=== PATIENT | male | born 1955 | race Caucasian/White ===

== ENCOUNTER → 2016-09-26 | Outpatient (CLI) | payer BC ==
[~2016-09-26] VITALS: Ht 182.9 cm; Wt 90.7 kg
[~2016-09-26] MED LIST: LIDOCAINE 2% INJ 100 MG/5 ML SDV (FOR ANES.) As Ordered ONE; NS 1,000 ML IV ONE; PROPOFOL 200 MG/20 ML VIAL As Ordered ONE
--- NOTE | 2016-09-26 11:45 | ROOR ---
Patient Name: Matthew James Procedure Date: 09/26/2016 11:20 AM Date of : 1955 Age: 60 Room: [facility] Gender: Male Note Status: Finalized Procedure: Total Colonoscopy to Cecum + Cold Snare Polypectomy Indications: Screening for colorectal malignant neoplasm, High risk colon cancer surveillance: Personal history of colonic polyps, Last colonoscopy: 2013 Providers: Narendra Carreon MD Referring MD: Narendra Carreon MD Requesting Provider: Medicines: Monitored Anesthesia Care Complications: No immediate complications. Procedure: Pre-Anesthesia Assessment: - The heart rate, respiratory rate, oxygen saturations, blood pressure, adequacy of pulmonary ventilation, and response to care were monitored throughout the procedure. The Colonoscope was introduced through the anus and advanced to the cecum, identified by appendiceal orifice and ileocecal valve. The colonoscopy was performed without difficulty. The patient tolerated the procedure well. The quality of the bowel preparation was excellent. Findings: The perianal and digital rectal examinations were normal. Non-bleeding internal hemorrhoids were found during retroflexion. The hemorrhoids were small and Grade I (internal hemorrhoids that do not prolapse). A small polyp was found at 20 cm proximal to the anus. The polyp was sessile. The polyp was removed with a cold snare. Resection and retrieval were complete. The exam was otherwise without abnormality on direct and retroflexion views. Impression: - Non-bleeding internal hemorrhoids. - One small polyp at 20 cm proximal to the anus, removed with a cold snare. Resected and retrieved. - The examination was otherwise normal on direct and retroflexion views. - The exam was otherwise normal to the cecum. Recommendation: - Patient has a contact number available for emergencies. The signs and symptoms of potential delayed complications were discussed with the patient. Return to normal activities tomorrow. Written discharge instructions were provided to the patient. - High fiber diet. - Discharge patient to home. - Continue present medications. - Await pathology results. - Telephone GI clinic for pathology results in 1 week. - Repeat colonoscopy in 5 years for surveillance based on pathology results. - Return to referring physician. - The findings and recommendations were discussed with the patient's family. Narendra Carreon MD Narendra Carreon MD 09/26/2016 11:44:49 AM This report has been signed electronically. Number of Addenda: 0 Note Initiated On: 09/26/2016 11:20 AM Estimated Blood Loss: Estimated blood loss: none.
[2016-09-26 12:05] VITALS: BP 113/72
== END | disposition home or self-care (01) ==
LOC: M OPP 09:51
PROVIDERS: ATTEND Internal Medicine Gastroenterology
DX: Z12.11 Encounter for screening for malignant neoplasm of colon (principal); D12.5 Benign neoplasm of sigmoid colon; K64.0 First degree hemorrhoids; Z86.010 Personal history of colon polyps; R05 Cough; F41.9 Anxiety disorder, unspecified; R01.1 Cardiac murmur, unspecified; Z88.3 Allergy status to other anti-infective agents

== ENCOUNTER → 2020-02-06 | Outpatient (CLI) | payer SELFPAY | LOC: M LABSMTC 12:15 | PROVIDERS: ATTEND Pediatrics | DX: Z20.828 Contact with and (suspected) exposure to other viral communicable diseases (principal) ==

== ENCOUNTER 2020-05-10 05:55 | Emergency (ER) | payer BC ==
[~2020-05-10] VITALS: Ht 182.9 cm; Wt 92.1 kg
[2020-05-10] MEDS ORDERED: ROSU5TAB5 PO (06:02)
[2020-05-10 07:39] LABS: BASO % 0.3 % (0.0-1.0); EOS # 0.1 10^3/uL (0.0-0.5); EOS % 1.2 % (0.0-3.0); HEMATOCRIT 40.4 % (42.0-52.0); HEMOGLOBIN 13.2 g/dl (13.5-17.5); LYMPH # 1.2 10^3/uL (1.5-5.0); LYMPH % 12.9 % (24.0-44.0); MEAN CORPUSCULAR HEMOGLOBIN 30.4 pg (27.0-33.0); MEAN CORPUSCULAR HGB CONC 32.7 g/dl (32.0-36.5); MEAN CORPUSCULAR VOLUME 93.1 fl (80.0-96.0); MONO # 0.7 10^3/uL (0.0-0.8); MONO % 7.2 % (2.0-8.0); NEUTROPHILS # 7.2 10^3/uL (1.5-8.5); NEUTROPHILS % 77.9 % (36.0-66.0); PLATELET COUNT, AUTOMATED 282 10^3/uL (150-450); RED BLOOD COUNT 4.34 10^6/uL (4.30-6.10); WHITE BLOOD COUNT 9.2 10^3/uL (4.0-10.0)
[2020-05-10 08:00] LABS: ALBUMIN 3.7 GM/DL (3.2-5.2); ALT/SGPT 36 U/L (12-78); AMYLASE 41 U/L (25-115); BILIRUBIN,DIRECT < 0.1 MG/DL (0.0-0.2); BILIRUBIN,TOTAL 0.5 MG/DL (0.2-1.0); BLOOD UREA NITROGEN 17 MG/DL (7-18); CALCIUM LEVEL 8.6 MG/DL (8.8-10.2); CARBON DIOXIDE LEVEL 27 MEQ/L (21-32); CHLORIDE LEVEL 111 MEQ/L (98-107); CK-MB VALUE MASS < 1.0 NG/ML (<3.6); CPK CREATINE PHOSPHOKINASE 107 U/L (39-308); CREATININE FOR GFR 0.92 MG/DL (0.70-1.30); GLOMERULAR FILTRATION RATE > 60.0 (>49); GLUCOSE, FASTING 98 MG/DL (70-100); LIPASE 88 U/L (73-393); MB/CK RELATIVE INDEX 0.93 (< OR =4); POTASSIUM SERUM 4.7 MEQ/L (3.5-5.1); SODIUM LEVEL 143 MEQ/L (136-145); TOTAL PROTEIN 7.1 GM/DL (6.4-8.2); TROPONIN I < 0.02 NG/ML (< 0.10)
--- NOTE | 2020-05-10 08:21 | REP ---
INDICATION: epigastric/RUQ abd pain wrapping around to back COMPARISON: None. TECHNIQUE: Real time hollingsworth scale ultrasound examination using curved array transducer. FINDINGS: Liver idemonstrates fatty changes and 9mm simple cyst in the left lobe. Pancreas is incompletely evaluated due to interposed bowel gas. The gallbladder demonstrates gallstone at the neck of the gallbladder without wall thickening, or pericholecystic fluid. No biliary ductal dilatation is appreciated and the common bile duct measures 3.6 mm diameter. Right kidney is normal in reniform shape without hydronephrosis and measures 11.4 x 5.5 x 4.9 cm. No ascites in the visualized right upper quadrant. IMPRESSION: 1. Cholelithiasis without sonographic signs of cholecystitis. 2. Hepatosteatosis and subcm cyst. <Electronically signed by Bobby Mcginnis > 05/10/20 [id number]
--- NOTE | 2020-05-10 08:22 | REP ---
INDICATION: Abdominal Pain COMPARISON: None. TECHNIQUE: Upright view of the chest with supine and upright views of the abdomen and pelvis. FINDINGS: Frontal upright view of the chest demonstrates no acute cardiopulmonary process or free air below the diaphragm to suspect pneumoperitoneum. Supine and upright views of the abdomen and pelvis demonstrate nonspecific bowel gas pattern without obstruction or perforation. No organomegaly. No abnormal calcifications. Skeletal structures normal for age. IMPRESSION: Nonspecific bowel gas pattern. <Electronically signed by Bobby Mcginnis > 05/10/20 [id number]
--- NOTE | 2020-05-10 08:42 | ED PDOC ---
Post-Departure Follow-Up radiology report faxed to Hawa Cormier MD May 10, 2020 08:42
--- NOTE | 2020-05-10 09:48 | ECGEPIP ---
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
[2020-05-10 11:33] LABS: CK-MB VALUE MASS < 1.0 NG/ML (<3.6); CPK CREATINE PHOSPHOKINASE 49 U/L (39-308); MB/CK RELATIVE INDEX 2.04 (< OR =4); TROPONIN I < 0.02 NG/ML (< 0.10)
[2020-05-10 12:01] VITALS: BP 128/85
--- NOTE | 2020-05-10 19:15 | ECGEPIP ---
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
== END 2020-05-10 12:09 | disposition home or self-care (01) ==
LOC: M ED 05:55
DX: K80.20 Calculus of gallbladder without cholecystitis without obstruction (principal); K76.0 Fatty (change of) liver, not elsewhere classified; K76.89 Other specified diseases of liver; R10.11 Right upper quadrant pain; E78.5 Hyperlipidemia, unspecified

== ENCOUNTER → 2020-09-12 | Outpatient (CLI) | payer BC ==
[~2020-09-12] MED LIST changes: -LIDOCAINE 2% INJ 100 MG/5 ML SDV (FOR ANES.) As Ordered ONE; -NS 1,000 ML IV ONE; -PROPOFOL 200 MG/20 ML VIAL As Ordered ONE; +ROSU5TAB5 PO
== END ==
LOC: M LABSMTC 09:03
PROVIDERS: ATTEND Anesthesiology
DX: Z20.828 Contact with and (suspected) exposure to other viral communicable diseases (principal); Z11.59 Encounter for screening for other viral diseases

== ENCOUNTER 2020-09-17 06:02 | Day surgery (SDC) | payer BC ==
[~2020-09-17] VITALS: Ht 182.9 cm; Wt 90.0 kg
[2020-09-17] MEDS ORDERED: BUPIVACAINE HCL 0.25% 30ML VIAL As Ordered ONE (07:13)
[2020-09-17] MEDS ORDERED: dexameTHASONE 4 MG/ML 1ML VIAL (J1100 PER 1MG) As Ordered ONE (07:14)
[2020-09-17] MEDS ORDERED: MIDAZOLAM INJ 2MG/2ML VIAL (J2250 PER 1MG) As Ordered ONE (07:14)
[2020-09-17] MEDS ORDERED: ACETAMINOPHEN 1000MG 100ML IV BTL (OFIRMEV) (J0131 PER 10MG) As Ordered ONE (07:14)
[2020-09-17] MEDS ORDERED: propofoL 200 MG/20 ML VIAL As Ordered ONE (07:14)
[2020-09-17] MEDS ORDERED: LIDOCAINE 2% 100MG/5ML SDV (FOR ANES.) As Ordered ONE (07:14)
[2020-09-17] MEDS ORDERED: ROCURONIUM BROMIDE 50 MG/5 ML VIAL As Ordered ONE (07:14)
[2020-09-17] MEDS ORDERED: KETOROLAC 60MG 2ML VIAL As Ordered ONE (07:14)
[2020-09-17] MEDS ORDERED: fentaNYL 100 MCG/2 ML INJECTION (J3010) As Ordered ONE ×2 (07:14→08:01)
[2020-09-17] MEDS ORDERED: ONDANSETRON 4MG/2ML VIAL As Ordered ONE (07:14)
[2020-09-17] MEDS ORDERED: SUGAMMADEX SODIUM 500 MG/5 ML VIAL (BRIDION) As Ordered ONE (07:14)
[2020-09-17] MEDS ORDERED: LIDOCAINE 5% OINT 30GM TUBE As Ordered ONE (07:22)
[2020-09-17] MEDS ORDERED: LR 1,000 ML IV ONE (07:25)
[2020-09-17] MEDS ORDERED: METOCLOPRAMIDE INJ 10MG/2ML VIAL (J2765 PER 1) IV PRN (09:30)
[2020-09-17] MEDS ORDERED: fentaNYL 100 MCG/2 ML INJECTION (J3010) IV PRN (09:30)
[2020-09-17] MEDS ORDERED: ONDANSETRON 4MG/2ML VIAL IV PRN (09:30)
[2020-09-17] MEDS ORDERED: PERCOCET 5MG/325MG TAB PO PRN (09:30)
[2020-09-17] MEDS ORDERED: HYDR-3715 PO (09:49)
[2020-09-17] MEDS ORDERED: NORCO, ANEXSIA 5/325MG TABLET (HYDROcodone/ACETAMINOPHEN) PO PRN (09:50)
[2020-09-17] MEDS ORDERED: ACETAMINOPHEN 500 MG TAB PO PRN (09:50)
[2020-09-17] MEDS ORDERED: IBUPROFEN 600MG TAB PO PRN (09:50)
[2020-09-17 11:00] VITALS: BP 136/82
--- NOTE | 2020-09-17 11:35 | RO ---
OPERATIVE NOTE DATE OF OPERATION: 09/17/2020 PREOPERATIVE DIAGNOSIS: Symptomatic gallstones. POSTOPERATIVE DIAGNOSIS: Symptomatic gallstones. PROCEDURE PERFORMED: Robotic-assisted laparoscopic cholecystectomy. SURGEON: Mamadou Enamorado MD REGIONAL DIRECTOR OF ADMISSIONS: ANESTHESIA: General. INDICATIONS FOR THE PROCEDURE: The patient is a 64-year-old man with a history of several episodes of upper abdominal pain consistent with biliary colic. He was found to have gallstones and is now for a laparoscopic cholecystectomy done with robotic assist. OPERATIVE PROCEDURE: The patient was brought to the operating room and placed on the table in a supine position. He was placed under general endotracheal anesthesia. The patient's abdomen was prepped and draped in a sterile fashion. 1/4% Marcaine was infiltrated at each of the trocar sites as needed. The sites for the four robotic ports were outlined on the abdomen. 1/4% Marcaine was infiltrated at each of these sites. The incision was in the left upper quadrant. A Veress needle was inserted and after positive hanging drop test, the abdomen was insufflated with carbon dioxide gas. An 8 mm robotic port was then placed through the incision without difficulty. A camera was inserted and initial examination showed no evidence of trocar or Veress needle injury. The liver appeared normal. The gallbladder was not initially visible. Portions of the stomach and intestines appeared normal. The other three trocars were then placed in the supraumbilical site and two in the right lower quadrant. The patient was then tilted to a 15 degree reverse Trendelenburg position and rolled slightly to the left. The patient cart of the da Yunior XI robot was brought into position and the endoscope arm was docked to the supraumbilical port. Targeting took place on the area of the gallbladder neck in the right upper quadrant. The other robotic arms were then docked. A hook cautery was placed in the left upper quadrant and a fenestrated bipolar and grasping retractor were placed on the right. I then moved to the control console to proceed with the operation. The gallbladder fundus was visible and this was grasped and elevated. The omentum and colon were retracted inferiorly to better expose the gallbladder. Dissection began at the gallbladder neck. The peritoneum was opened using the hook cautery and dissection then proceeded through the pericholecystic fibrofatty tissues. The cholecystic artery was identified branching at the top of the dissection. The cystic duct was then clearly identified and dissected free circumferentially. The cystic duct and the cholecystic artery were then doubly clipped and divided. The gallbladder was then dissected from the gallbladder bed using cautery dissection. The gallbladder was not perforated in the course of dissection. The gallbladder was placed in an Endopouch. The right upper quadrant was inspected. A cottonoid was used to absorb a minimal amount of blood in the subhepatic space. Inspection showed no evidence of bleeding or bile leak. The robotic instruments were then removed and the robot was undocked and withdrawn. I returned to the patient's bedside. The patient was returned to a flat position. The trocars were used to deflate the abdomen and were then removed. The Endopouch was recovered through the supraumbilical site. It was necessary to extend the fascial incision slightly to allow passage of the gallbladder. There were some small gallstones palpable within the gallbladder. The fascia at the supraumbilical site was closed with a running 2-0 PDS. The skin incisions were all closed with buried 4-0 Vicryl and Steri-Strips. Light dressings were applied. The patient tolerated the procedure well without apparent complication. He was awakened in the operating room, extubated and moved to the recovery room in stable condition.
== END 2020-09-17 11:02 | disposition home or self-care (01) ==
LOC: M SDC 06:02
PROVIDERS: ATTEND Surgery
DX: K80.10 Calculus of gallbladder with chronic cholecystitis without obstruction (principal); E78.5 Hyperlipidemia, unspecified; F41.9 Anxiety disorder, unspecified; Z79.899 Other long term (current) drug therapy
CPT/HCPCS: 47562; 88304; J0131; J1100; J1885; J2250; J2405; J3010; S2900

== ENCOUNTER → 2021-09-19 | Outpatient (CLI) | payer BC ==
[~2021-09-19] MED LIST changes: +HYDR-3715 PO
== END ==
LOC: M LABSMTC 09:26
PROVIDERS: ATTEND Anesthesiology
DX: Z01.812 Encounter for preprocedural laboratory examination (principal); Z20.822 Contact with and (suspected) exposure to COVID-19

== ENCOUNTER 2021-09-23 06:46 | Day surgery (SDC) | payer BC ==
[~2021-09-23] VITALS: Ht 182.9 cm; Wt 89.4 kg
[~2021-09-23 06:46] MED LIST changes: +NS 1,000 ML IV ONE
[2021-09-23] MEDS ORDERED: SIMETHICONE 40MG/0.6ML DROPS 30ML As Ordered ONE (06:56)
[2021-09-23] MEDS ORDERED: LIDOCAINE 2% 100MG/5ML SDV (FOR ANES.) As Ordered ONE (07:42)
[2021-09-23] MEDS ORDERED: propofoL 200 MG/20 ML VIAL As Ordered ONE (08:00)
[2021-09-23 08:25] VITALS: BP 142/88
== END 2021-09-23 08:35 | disposition home or self-care (01) ==
LOC: M OPP 06:46
PROVIDERS: ATTEND Surgery
DX: Z12.11 Encounter for screening for malignant neoplasm of colon (principal); Z86.010 Personal history of colon polyps; Z12.0 Encounter for screening for malignant neoplasm of stomach; K64.0 First degree hemorrhoids; G47.30 Sleep apnea, unspecified; E78.00 Pure hypercholesterolemia, unspecified; Z79.02 Long term (current) use of antithrombotics/antiplatelets; Z91.018 Allergy to other foods; Z88.8 Allergy status to other drugs, medicaments and biological substances

== ENCOUNTER 2022-07-05 00:56 | Emergency (ER) | payer BC ==
[~2022-07-05 00:56] MED LIST changes: -NS 1,000 ML IV ONE
[2022-07-05 00:57] VITALS: BP 163/94
== END 2022-07-05 05:17 | disposition home or self-care (01) ==
LOC: M ED 00:56
DX: S50.861A Insect bite (nonvenomous) of right forearm, initial encounter (principal); E78.5 Hyperlipidemia, unspecified; Z91.048 Other nonmedicinal substance allergy status; Z91.018 Allergy to other foods; Z79.02 Long term (current) use of antithrombotics/antiplatelets

== ENCOUNTER → 2022-10-20 | Outpatient (CLI) | payer MEDICARE, BC ==
[2022-10-20 11:27] LABS: BASO # 0.1 10^3/uL (0.0-0.2); BASO % 0.7 % (0.0-1.0); EOS # 0.2 10^3/uL (0.0-0.5); EOS % 3.2 % (0.0-3.0); HEMATOCRIT 42.2 % (42.0-52.0); HEMOGLOBIN 14.1 g/dl (13.5-17.5); LYMPH # 1.6 10^3/uL (1.5-5.0); MEAN CORPUSCULAR HEMOGLOBIN 31.1 pg (27.0-33.0); MEAN CORPUSCULAR HGB CONC 33.4 g/dl (32.0-36.5); MEAN CORPUSCULAR VOLUME 93.2 fl (80.0-96.0); MONO # 0.7 10^3/uL (0.0-0.8); MONO % 9.5 % (2.0-8.0); NEUTROPHILS # 4.3 10^3/uL (1.5-8.5); NEUTROPHILS % 62.3 % (36.0-66.0); PLATELET COUNT, AUTOMATED 204 10^3/uL (150-450); RED BLOOD COUNT 4.53 10^6/uL (4.30-6.10); WHITE BLOOD COUNT 6.8 10^3/uL (4.0-10.0)
[2022-10-20 11:52] LABS: ALBUMIN 3.6 G/DL (3.2-5.2); ALKALINE PHOSPHATASE 80 U/L (46-116); ALT/SGPT 17 U/L (7.0-40); AST/SGOT 8 U/L (<34); BILIRUBIN,TOTAL 0.4 MG/DL (0.3-1.2); BLOOD UREA NITROGEN 17 MG/DL (9-23); CALCIUM LEVEL 8.6 MG/DL (8.3-10.6); CARBON DIOXIDE LEVEL 26 MMOL/L (20-31); CHLORIDE LEVEL 111 MMOL/L (98-107); CHOLESTEROL LEVEL 169 MG/DL (<200); CHOLESTEROL RISK RATIO 2.86 (<5); CREATININE FOR GFR 1.04 MG/DL (0.70-1.30); GLOMERULAR FILTRATION RATE > 60.0 (>49); GLUCOSE, FASTING 102 MG/DL (74-106); HDL CHOLESTEROL 58.9 MG/DL (>40); LDL CHOLESTEROL 97.5 MG/DL (<100); NON-HDL-C 110.1 MG/DL; POTASSIUM SERUM 4.4 MMOL/L (3.5-5.1); SODIUM LEVEL 142 MMOL/L (136-145); TOTAL PROTEIN 6.5 G/DL (5.7-8.2); TRIGLYCERIDES LEVEL 63 MG/DL (<150)
[2022-10-20 11:54] LABS: FREE T4 1.09 NG/DL (0.89-1.76); THYROID STIMULATING HORMONE 2.777 uIU/ML (0.55-4.78)
== END ==
LOC: M WUC 09:24
PROVIDERS: ATTEND Family Medicine
DX: E78.2 Mixed hyperlipidemia (principal); Z12.5 Encounter for screening for malignant neoplasm of prostate; Z13.29 Encounter for screening for other suspected endocrine disorder; Z13.0 Encounter for screening for diseases of the blood and blood-forming organs and certain disorders involving the immune mechanism
CPT/HCPCS: 36415; 80053; 80061; 84439; 84443; 85025; G0103

== ENCOUNTER → 2022-10-28 | Outpatient (CLI) | payer MEDICARE, BC | LOC: M RAD 06:46 | PROVIDERS: ATTEND Nurse Practitioner Adult Health | DX: Z13.6 Encounter for screening for cardiovascular disorders (principal) ==

== ENCOUNTER → 2022-12-05 | Outpatient (CLI) | payer MEDICARE, BC | LOC: M WUC 13:10 | PROVIDERS: ATTEND Nurse Practitioner Adult Health | DX: M79.672 Pain in left foot (principal); M77.32 Calcaneal spur, left foot ==

== ENCOUNTER → 2024-01-08 | Outpatient (CLI) | payer MEDICARE, BC ==
[~2024-01-08] MED LIST changes: +ROSU5TAB49 PO; -ROSU5TAB5 PO
[2024-01-08 10:33] LABS: BASO % 0.3 % (0.0-1.0); EOS # 0.3 10^3/uL (0.0-0.5); EOS % 3.9 % (0.0-3.0); HEMATOCRIT 41.5 % (42.0-52.0); HEMOGLOBIN 13.9 g/dl (13.5-17.5); LYMPH # 1.8 10^3/uL (1.5-5.0); LYMPH % 25.7 % (24.0-44.0); MEAN CORPUSCULAR HEMOGLOBIN 30.8 pg (27.0-33.0); MEAN CORPUSCULAR HGB CONC 33.5 g/dl (32.0-36.5); MEAN CORPUSCULAR VOLUME 91.8 fl (80.0-96.0); MONO # 0.7 10^3/uL (0.0-0.8); MONO % 10.1 % (2.0-8.0); NEUTROPHILS # 4.1 10^3/uL (1.5-8.5); NEUTROPHILS % 59.6 % (36.0-66.0); PLATELET COUNT, AUTOMATED 227 10^3/uL (150-450); RED BLOOD COUNT 4.52 10^6/uL (4.30-6.10); WHITE BLOOD COUNT 6.9 10^3/uL (4.0-10.0)
[2024-01-08 10:35] LABS: PSA SCREENING 0.64 NG/ML (< 4.00)
[2024-01-08 10:40] LABS: FREE T4 1.12 NG/DL (0.89-1.76)
[2024-01-08 10:41] LABS: ALBUMIN 3.6 G/DL (3.2-5.2); ALKALINE PHOSPHATASE 73 U/L (40-129); ALT/SGPT 23 U/L (7.0-40); AST/SGOT 14 U/L (<34); BILIRUBIN,TOTAL 0.8 MG/DL (0.3-1.2); BLOOD UREA NITROGEN 14 MG/DL (9-23); CARBON DIOXIDE LEVEL 27 MMOL/L (20-31); CHLORIDE LEVEL 111 MMOL/L (98-107); CHOLESTEROL LEVEL 199 MG/DL (<200); CHOLESTEROL RISK RATIO 3.43 (<5); CREATININE FOR GFR 1.04 MG/DL (0.70-1.30); GLOMERULAR FILTRATION RATE > 60.0 (>49); GLUCOSE, FASTING 99 MG/DL (74-106); HDL CHOLESTEROL 57.9 MG/DL (>40); LDL CHOLESTEROL 117.5 MG/DL (<100); NON-HDL-C 141.1 MG/DL; POTASSIUM SERUM 4.4 MMOL/L (3.5-5.1); SODIUM LEVEL 143 MMOL/L (136-145); TOTAL PROTEIN 6.7 G/DL (5.7-8.2); TRIGLYCERIDES LEVEL 118 MG/DL (<150)
== END ==
LOC: M WUC 08:15
PROVIDERS: ATTEND Nurse Practitioner Adult Health
DX: E78.2 Mixed hyperlipidemia (principal); Z13.29 Encounter for screening for other suspected endocrine disorder; Z13.0 Encounter for screening for diseases of the blood and blood-forming organs and certain disorders involving the immune mechanism; Z12.5 Encounter for screening for malignant neoplasm of prostate
CPT/HCPCS: 36415; 80053; 80061; 84439; 84443; 85025; G0103

== ENCOUNTER 2024-10-28 07:29 | Emergency (ER) | payer MEDICARE, BC ==
[~2024-10-28] VITALS: Ht 182.9 cm; Wt 92.8 kg
[2024-10-28] MEDS: MECLIZINE 25 MG TABLET PO ONE (08:13)
[2024-10-28 08:23] LABS: BASO # 0.0 10^3/uL (0.0-0.2); BASO % 0.4 % (0.0-1.0); EOS # 0.2 10^3/uL (0.0-0.5); EOS % 2.1 % (0.0-3.0); LYMPH # 1.4 10^3/uL (1.5-5.0); LYMPH % 17.7 % (24.0-44.0); MONO # 0.6 10^3/uL (0.0-0.8); MONO % 7.7 % (2.0-8.0); NEUTROPHILS # 5.6 10^3/uL (1.5-8.5); NEUTROPHILS % 71.7 % (36.0-66.0); PLATELET COUNT, AUTOMATED 210 10^3/uL (150-450)
[2024-10-28] MEDS: diphenhydrAMINE 50 MG/ML VIAL IV STA (08:33)
[2024-10-28] MEDS: FAMOTIDINE IV BAG 20 MG in IV 1 EA IV ONE (08:33)
[2024-10-28 08:35] LABS: INR 0.88
[2024-10-28 08:50] LABS: ALT/SGPT 18 U/L (7.0-40); AST/SGOT 20 U/L (<34); CALCIUM LEVEL 9.1 MG/DL (8.3-10.6); CARBON DIOXIDE LEVEL 24 MMOL/L (20-31); CHLORIDE LEVEL 109 MMOL/L (98-107); CK-MB VALUE MASS 2.6 NG/ML (<3.6); CREATININE FOR GFR 1.17 MG/DL (0.70-1.30); GLOMERULAR FILTRATION RATE 68.3 (>49); POTASSIUM SERUM 4.2 MMOL/L (3.5-5.1); SODIUM LEVEL 144 MMOL/L (136-145)
[2024-10-28 08:52] LABS: CPK CREATINE PHOSPHOKINASE 94 U/L (46-171); MB/CK RELATIVE INDEX 2.76 (< OR =4)
[2024-10-28] MEDS ORDERED: ISOVUE-370 76% 100 ML VIAL As Ordered ONE (09:15)
[2024-10-28 09:52] LABS: CK-MB VALUE MASS 2.6 NG/ML (<3.6)
[2024-10-28 09:55] LABS: CPK CREATINE PHOSPHOKINASE 91 U/L (46-171); MB/CK RELATIVE INDEX 2.85 (< OR =4)
[2024-10-28] MEDS ORDERED: HOME MED LIST COMPLETE! XX SCH (10:25)
[2024-10-28 10:47] LABS: KETONE, URINE AUTO RFX NEGATIVE (NEGATIVE); LEUKOCYTE ESTERASE UR AUTO RFX NEGATIVE (NEGATIVE); NITRITE, URINE AUTO RFX NEGATIVE (NEGATIVE); RBC, URINE AUTO RFX 0 /HPF (0-3); SQUAM EPITHELIAL CELL UR AURFX 0 /HPF (0-6); WBC, URINE AUTO RFX 1 /HPF (0-3)
[2024-10-28] MEDS ORDERED: MECL-209 PO (11:48)
[2024-10-28 12:07] VITALS: BP 140/89; TEMP 97.1; O2SAT 97
== END 2024-10-28 12:09 | disposition home or self-care (01) ==
LOC: M ED 08:57
DX: H81.399 Other peripheral vertigo, unspecified ear (principal); R00.1 Bradycardia, unspecified; I45.81 Long QT syndrome; E78.5 Hyperlipidemia, unspecified; F41.9 Anxiety disorder, unspecified; Z79.899 Other long term (current) drug therapy; Z91.018 Allergy to other foods; Z91.048 Other nonmedicinal substance allergy status
CPT/HCPCS: 70450; 70496; 70498; 70551; 71045; 80047; 80048; 80076; 81001; 82550; 82553; 84484; 85025; 85610; 85730; 87486; 87581; 87633; 87798; 93005; 93041; 94760; 96365; 96375; 99285; J1200; J1308; J2919; Q9967

== ENCOUNTER → 2024-11-06 | Outpatient (CLI) | payer MEDICARE, BC ==
[~2024-11-06] MED LIST changes: +MECL-209 PO
[2024-11-06 13:04] LABS: BASO # 0.0 10^3/uL (0.0-0.2); BASO % 0.4 % (0.0-1.0); EOS # 0.2 10^3/uL (0.0-0.5); EOS % 2.9 % (0.0-3.0); LYMPH # 1.6 10^3/uL (1.5-5.0); LYMPH % 21.8 % (24.0-44.0); MONO # 0.8 10^3/uL (0.0-0.8); MONO % 10.7 % (2.0-8.0); NEUTROPHILS # 4.6 10^3/uL (1.5-8.5); NEUTROPHILS % 63.6 % (36.0-66.0); PLATELET COUNT, AUTOMATED 226 10^3/uL (150-450); PSA SCREENING 0.61 NG/ML (< 4.00)
[2024-11-06 13:06] LABS: ALT/SGPT 20.0 U/L (7.0-40); AST/SGOT 15.0 U/L (<34); CALCIUM LEVEL 8.8 MG/DL (8.3-10.6); CARBON DIOXIDE LEVEL 27.0 MMOL/L (20-31); CHLORIDE LEVEL 109.0 MMOL/L (98-107); CHOLESTEROL LEVEL 180.0 MG/DL (<200); CHOLESTEROL RISK RATIO 3.36 (<5); CREATININE FOR GFR 1.06 MG/DL (0.70-1.30); GLOMERULAR FILTRATION RATE 76.9 (>49); LDL CHOLESTEROL 103.5 MG/DL (<100); NON-HDL-C 126.5 MG/DL; POTASSIUM SERUM 4.8 MMOL/L (3.5-5.1); SODIUM LEVEL 144.0 MMOL/L (136-145); TRIGLYCERIDES LEVEL 115.0 MG/DL (<150)
[2024-11-06 13:08] LABS: FREE T4 1.14 NG/DL (0.89-1.76)
== END ==
LOC: M WUC 08:32
PROVIDERS: ATTEND Nurse Practitioner Adult Health
DX: E78.2 Mixed hyperlipidemia (principal); Z13.29 Encounter for screening for other suspected endocrine disorder; Z13.0 Encounter for screening for diseases of the blood and blood-forming organs and certain disorders involving the immune mechanism; Z12.5 Encounter for screening for malignant neoplasm of prostate
CPT/HCPCS: 36415; 80053; 80061; 84439; 84443; 85025; G0103

== ENCOUNTER 2024-12-02 11:34 | Emergency (ER) | payer MEDICARE, BC ==
[~2024-12-02] VITALS: Ht 195.6 cm; Wt 91.9 kg
[2024-12-02 12:13] LABS: BASO # 0.0 10^3/uL (0.0-0.2); BASO % 0.5 % (0.0-1.0); EOS # 0.2 10^3/uL (0.0-0.5); EOS % 2.2 % (0.0-3.0); LYMPH # 2.1 10^3/uL (1.5-5.0); LYMPH % 25.1 % (24.0-44.0); MONO # 0.7 10^3/uL (0.0-0.8); MONO % 8.1 % (2.0-8.0); NEUTROPHILS # 5.3 10^3/uL (1.5-8.5); NEUTROPHILS % 63.9 % (36.0-66.0); PLATELET COUNT, AUTOMATED 267 10^3/uL (150-450)
[2024-12-02 12:32] LABS: INR 0.87
[2024-12-02 12:39] LABS: CALCIUM LEVEL 9.3 MG/DL (8.3-10.6); CARBON DIOXIDE LEVEL 24.0 MMOL/L (20-31); CHLORIDE LEVEL 106.0 MMOL/L (98-107); CREATININE FOR GFR 1.1 MG/DL (0.70-1.30); GLOMERULAR FILTRATION RATE 73.6 (>49); POTASSIUM SERUM 5.0 MMOL/L (3.5-5.1); SODIUM LEVEL 141.0 MMOL/L (136-145)
[2024-12-02 16:55] VITALS: BP 150/72; TEMP 97.1; O2SAT 99
== END 2024-12-02 17:05 | disposition home or self-care (01) ==
LOC: M ED 11:34
DX: H81.393 Other peripheral vertigo, bilateral (principal); R00.1 Bradycardia, unspecified; E78.5 Hyperlipidemia, unspecified; Z91.018 Allergy to other foods; Z91.041 Radiographic dye allergy status; Z79.899 Other long term (current) drug therapy